=== PATIENT | male | born 1950 | race Caucasian/White ===

== ENCOUNTER 2017-02-21 06:19 | Inpatient (IN) | payer BC ==
[2017-02-09 12:03] LABS: HEMOGLOBIN 15.2 g/dL (13.6-17.8)
--- NOTE | ~2017-02-21 | OP ---
Record Of Operation [facility] [address] [place]. [address] NAME: ALDA MCCAULEY : 54 STATUS : ADM IN PAT#: [id number] AGE: 66 ADM/REG DATE : 02/21/17 MR#: [id number] REPORT SERV DATE: 02/21/17 DICTATED BY: ISABELL JACOBS DATE: 02/21/17 REPORT STATUS : Draft TRANSCRIBED BY: MODL DATE: 02/21/17 DATE OF PROCEDURE: 02/21/2017 PREOPERATIVE DIAGNOSIS: Prostate cancer. POSTOPERATIVE DIAGNOSIS: Prostate cancer. PROCEDURE: Robotic-assisted laparoscopic radical prostatectomy. CERAMICS TECHNICIAN: MICHELLE Cueva. ANESTHESIA: General. PREOPERATIVE INDICATIONS: This is a 66-year-old male with a negative family history of prostate cancer, who presented with a PSA of 4.7. Biopsies disclosed a Corning 7, 3+4 prostate cancer involving all six cores on the right and two cores of the left apex. CT scan and bone scan were negative. After reviewing his options, he elected surgical management with a robotic approach. DESCRIPTION OF OPERATIVE PROCEDURE: Following adequate general anesthesia, the patient was placed in a modified lithotomy position, well padded and secured to the table, and placed in a steep Trendelenburg position. He was noted to be safely secured to the table and was returned to a level position where he was prepped and draped in the usual sterile fashion. A 16-Cypriot catheter was placed into the bladder from the operative field. Pneumoperitoneum was achieved with a Veress needle. A 12 mm port was placed in the left upper quadrant with the Optiview system. The camera was placed into the abdomen. The abdomen inspected. There were no abnormal findings. Under direct vision, the four robotic ports were placed as well as a left lower quadrant 8 mm port. The patient was then returned to a Trendelenburg position and docked to the robot. The bladder was taken down by incising laterally along the median umbilical ligaments to the level of the vas deferens bilaterally with electrocautery elliott. The space of Retzius was developed bluntly. Fat was dissected off the anterior surface of the prostate sharply. The endopelvic fascia was incised bilaterally and the levator muscle swept off the lateral surface of the prostate bilaterally. The dorsal vein complex was dissected out and controlled and divided with an endovascular BERT stapler. The bladder neck was incised at its junction with the base of the prostate with the electrocautery spatula. The bladder was entered. The catheter was grasped with a ProGrasp grasper and used for anterior retraction on the prostate. The posterior bladder neck was developed and incised with the electrocautery spatula. A plane was bluntly developed between the posterior bladder neck and prostate. Anterior Denonvilliers fascia was incised and exposed the vas deferens and seminal vesicles. The vas deferens were dissected out bluntly, divided sharply, and the ends of the vas deferens grasped with the ProGrasp grasper for additional anterior retraction on the prostate. The seminal vesicles were dissected out bluntly. Their blood supply controlled with interlocking clips and then divided sharply at Record Of Operation [place] [id number] [facility] [place]. [address] NAME: ALDA MCCAULEY : 54 STATUS : ADM IN PAT#: [id number] AGE: 66 ADM/REG DATE : 02/21/17 MR#: [id number] REPORT SERV DATE: 02/21/17 DICTATED BY: ISABELL JACOBS DATE: 02/21/17 REPORT STATUS : Draft TRANSCRIBED BY: GWYN DATE: 02/21/17 their base. The bladder neck was inspected and did require some minor reconstruction with two [id number] 3-0 Vicryl sutures at the 3 and 9 o'clock position taking care to avoid the ureteral orifices. Posterior Denonvilliers fascia was incised and a plane was bluntly developed in the rectum and prostate. The levator fascia was incised bilaterally and the neurovascular bundles bluntly and easily dissected away from the posterior lateral surface of the prostate bilaterally. The pedicles were controlled with interlocking clips and divided sharply with round-tip scissors. The urethra was divided with the round-tip scissors. The urethra was divided sharply at the prostatourethral junction. The dorsal vein complex was secured to the pubic periosteum. Apical attachments were divided sharply and the prostate was freed. A right laparoscopic pelvic lymph node dissection was performed with the margins of dissection being the anterior surface of the external iliac vein. The bifurcation of the external and internal iliac artery and the pelvic side wall both anterior and posterior to the obturator nerve. Margins were controlled with interlocking clips and the specimen divided sharply with a round-tip scissors. The jose specimen and prostate were placed in an EndoCatch sac and placed out of the view of the operative field. The pelvis was irrigated with sterile water and antibiotic solution. There was excellent hemostasis and no apparent rectal injury. The posterior Denonvilliers fascia was then reapproximated to the posterior urethral plate with a running 3-0 V-Loc suture in a William stitch fashion. The urethrovesical anastomosis was performed with a running 3-0 V-Loc suture over a 20-Cypriot catheter. The balloon was filled with 10 mL of sterile water. The bladder was irrigated with sterile water. There was a watertight anastomosis. A 19 Noel drain was passed through one of the robotic ports and placed into the pelvis. The port was removed, its exit site demonstrating good hemostasis. The drain was fixed to the skin with 2-0 Prolene suture. The patient was de-docked from the robot and returned to a level position. The remaining trocars were removed under direct vision, their exit sites demonstrating good hemostasis. The periumbilical port was used to guide a transverse fascial incision to allow intact retrieval of the specimen. This was closed with 6 interrupted #1 Ethibond sutures. The periumbilical wound and port sites were irrigated with antibiotic solution and skin edges were reapproximated with skin clips. The drain was left to grenade suction. The catheter was left to gravity drainage. Bandages were applied. The procedure was concluded. He was awakened from his anesthesia and had tolerated it well. He was transferred to the recovery room in satisfactory condition. OSCAR/GWYN Isabell Jacobs M.D. / [id number] CC: Record Of Operation [address] [address] NAME: ALDA MCCAULEY : 54 STATUS : ADM IN [facility]#: [id number] AGE: 66 ADM/REG DATE : 02/21/17 MR#: [id number] REPORT SERV DATE: 02/21/17 DICTATED BY: ISABELL JACOBS DATE: 02/21/17 REPORT STATUS : Draft TRANSCRIBED BY: GWYN DATE: 02/21/17 Isabell Jacobs M.D.
[~2017-02-21 06:19] MED LIST: ALLEGRA180 PO; VALTREX5 PO
[2017-02-21 13:40] LABS: HEMATOCRIT 44.2 % (40.0-51.0)
[2017-02-21 13:53] LABS: CREATININE 1.87 MG/DL (0.70-1.30); POTASSIUM, SERUM 3.3 MMOL/L (3.5-5.3)
[2017-02-22 07:05] LABS: BUN (BLOOD UREA NITROGEN) 13 MG/DL (6-23); CALCIUM, SERUM 8.4 MG/DL (8.5-10.4); CHLORIDE, SERUM 100 MMOL/L (96-112); CO2 (CARBON DIOXIDE) 28 MMOL/L (24-34); CREATININE 1.28 MG/DL (0.70-1.30); GFR AFRICAN AMERICAN 68 ML/MIN (>=60); GFR NON AFRICAN AMERICAN 59 ML/MIN (>=60); GLUCOSE, SERUM 121 MG/DL (60-99); POTASSIUM, SERUM 3.8 MMOL/L (3.5-5.3); SODIUM, SERUM 136 MMOL/L (135-148)
== END 2017-02-22 13:08 | disposition home or self-care (01) | DRG 708 ==
LOC: SDC/OF 06:19 → PACU 12:45 → 4SO 14:40
PROVIDERS: Urology
PROC: 0VT04ZZ Resection of Prostate, Percutaneous Endoscopic Approach (ICD-10-PCS; principal; 2017-02-21 07:30)
PROC: 8E0W4CZ Robotic Assisted Procedure of Trunk Region, Percutaneous Endoscopic Approach (ICD-10-PCS; principal; 2017-02-21 07:30)
PROC: 0VT34ZZ Resection of Bilateral Seminal Vesicles, Percutaneous Endoscopic Approach (ICD-10-PCS; principal; 2017-02-21 07:30)
PROC: 07BC4ZX Excision of Pelvis Lymphatic, Percutaneous Endoscopic Approach, Diagnostic (ICD-10-PCS; principal; 2017-02-21 07:30)
PROC: 0VTQ4ZZ Resection of Bilateral Vas Deferens, Percutaneous Endoscopic Approach (ICD-10-PCS; principal; 2017-02-21 07:30)
DX: C61 Malignant neoplasm of prostate (principal); A60.00 Herpesviral infection of urogenital system, unspecified
CPT/HCPCS: 80048; 82565; 84132; 85014; 85018; 88307; 88309; 93005; A9270-GY; J0690; J1885; J2250; J2405; J2710; J2795; J3010